=== PATIENT | female | born 1955 | race Caucasian/White ===

== ENCOUNTER → 2023-09-18 10:44 | Outpatient (REF) | payer MEDICARE, OTHER, SELFPAY ==
[2023-09-18 11:47] LABS: % Immature Granulocytes 0.2 % (0-0.5); % Lymphocytes 30.9 % (20.5-51.1); % Monocytes 6.8 % (1.7-9.3); % Neutrophils 57.1 % (42.2-75.2); Absolute Basophils 0.1 10^3/uL (0-0.2); Absolute Eosinophils 0.2 10^3/uL (0-0.7); Absolute Lymphocytes 1.6 10^3/uL (1.2-3.4); Absolute Monocytes 0.3 10^3/uL (0.1-0.6); Absolute Neutrophils 2.9 10^3/uL (1.4-6.5); Hematocrit 41.1 % (37.0-47.0); Hemoglobin 14.1 g/dL (12.0-16.0); Mean Corp Hgb Conc. 34.3 g/dL (33.0-37.0); Mean Corpuscular Hgb 33.3 pg (27.0-31.0); Mean Corpuscular Volume 96.9 fL (81.0-99.0); Mean Platelet Volume 9.8 fL (7.4-10.4); Nucleated Red Blood Cells % 0 %; Platelet Count 262 10^3/uL (130-400); Red Blood Cell Count 4.24 10^6/uL (4.20-5.40); Red Cell Dist. Width 12.7 % (11.5-14.5)
[2023-09-18 12:15] LABS: ALT (SGPT) 21 U/L (0-35); AST (SGOT) 33 U/L (14-36); Albumin 4.1 g/dl (3.5-5.0); Alkaline Phosphatase 109 U/L (38-126); Blood Urea Nitrogen 17 mg/dl (7-17); Calcium 9.4 mg/dl (8.4-10.2); Carbon Dioxide 27 mmol/L (22-30); Chloride 103 mmol/L (98-107); Glucose 93 mg/dl (70-99); HDL Cholesterol 73 mg/dl; LDL Cholesterol, Calculated 74 mg/dl; Potassium 4.9 mmol/L (3.5-5.1); Sodium 136 mmol/L (135-145); Total Bilirubin 0.4 mg/dl (0.2-1.3); Total Cholesterol 172 mg/dl (50-199); Triglyceride 129 mg/dl (10-149); Very Low Density Lipoprotein 25 mg/dl (0-30); eGFR > 60.00
[2023-09-18 12:40] LABS: TSH Reflex To Free T4 0.23 uIU/ml (0.47-4.68)
[2023-09-18 13:10] LABS: Free T4 1.21 ng/dl (0.78-2.19)
== END ==
LOC: REG 10:44
PROVIDERS: ATTENDING PHYSICIAN Internal Medicine; FAMILY PHYSICIAN Family Medicine
DX: I10 Essential (primary) hypertension (principal); E78.00 Pure hypercholesterolemia, unspecified
CPT/HCPCS: 36415; 80053; 80061; 84439; 84443; 85025

== ENCOUNTER → 2023-09-21 15:09 | Outpatient (REF) | payer MEDICARE, OTHER, SELFPAY | LOC: RAD 15:09 | PROVIDERS: ATTENDING PHYSICIAN Family Medicine | DX: S09.93XA Unspecified injury of face, initial encounter (principal) | CPT/HCPCS: 70150 ==

== ENCOUNTER → 2023-12-08 11:53 | Outpatient (REF) | payer MEDICARE, OTHER, SELFPAY ==
[2023-12-08 13:32] LABS: Free T4 0.92 ng/dl (0.78-2.19)
[2023-12-08 13:46] LABS: TSH 0.36 uIU/ml (0.47-4.68)
[2023-12-10 10:36] LABS: Thyroglobulin Antibodies <0.9 IU/mL (0.0-4.0); Thyroid Peroxidase Ab (TPO) 1.4 IU/mL (0.0-9.0)
[2023-12-10 15:35] LABS: Total T3 (Sendout) 103 ng/dL (80-200)
== END ==
LOC: REG 11:53
PROVIDERS: ATTENDING PHYSICIAN Family Medicine; OTHER PHYSICIAN Internal Medicine Endocrinology, Diabetes & Metabolism
DX: E05.90 Thyrotoxicosis, unspecified without thyrotoxic crisis or storm (principal)
CPT/HCPCS: 36415; 84439; 84443; 84480; 86376; 86800

== ENCOUNTER → 2023-12-29 14:57 | Outpatient (REF) | payer MEDICARE, OTHER, SELFPAY | LOC: RCS 14:57 | PROVIDERS: ATTENDING PHYSICIAN Family Medicine | DX: R01.1 Cardiac murmur, unspecified (principal) | CPT/HCPCS: 93306 ==

== ENCOUNTER → 2024-01-12 13:52 | Outpatient (REF) | payer MEDICARE, OTHER, SELFPAY ==
[2024-01-12 15:31] LABS: ALT (SGPT) 29 U/L (0-35); AST (SGOT) 42 U/L (14-36); Albumin 4.4 g/dl (3.5-5.0); Alkaline Phosphatase 111 U/L (38-126); Blood Urea Nitrogen 18 mg/dl (7-17); Calcium 9.9 mg/dl (8.4-10.2); Carbon Dioxide 30 mmol/L (22-30); Chloride 101 mmol/L (98-107); Glucose 101 mg/dl (70-99); Potassium 4.3 mmol/L (3.5-5.1); Sodium 139 mmol/L (135-145); Total Bilirubin 0.4 mg/dl (0.2-1.3); Total Protein 7.4 g/dl (6.3-8.2); eGFR > 60.00
[2024-01-12 15:48] LABS: Free T3 2.57 pg/ml (2.77-5.27); Free T4 0.85 ng/dl (0.78-2.19)
[2024-01-14 22:53] LABS: TSH Receptor Antibody <1.10 IU/L (<=1.75)
[2024-01-14 23:44] LABS: Thyroid Stim. Immunoglobulin <0.10 IU/L (<=0.54)
== END ==
LOC: REG 13:52
PROVIDERS: ATTENDING PHYSICIAN Internal Medicine Endocrinology, Diabetes & Metabolism
DX: E05.90 Thyrotoxicosis, unspecified without thyrotoxic crisis or storm (principal)
CPT/HCPCS: 36415; 80053; 83520; 84439; 84443; 84445; 84481

== ENCOUNTER → 2024-04-04 13:16 | Outpatient (REF) | payer MEDICARE, OTHER, SELFPAY ==
[2024-04-04 15:46] LABS: ALT (SGPT) 21 U/L (0-35); AST (SGOT) 34 U/L (14-36); Albumin 4.3 g/dl (3.5-5.0); Alkaline Phosphatase 101 U/L (38-126); Blood Urea Nitrogen 21 mg/dl (7-17); Calcium 9.6 mg/dl (8.4-10.2); Carbon Dioxide 28 mmol/L (22-30); Chloride 100 mmol/L (98-107); Glucose 81 mg/dl (70-99); Potassium 4.5 mmol/L (3.5-5.1); Sodium 139 mmol/L (135-145); Total Bilirubin 0.3 mg/dl (0.2-1.3); Total Protein 6.8 g/dl (6.3-8.2); eGFR > 60.00
[2024-04-04 16:02] LABS: Free T3 2.82 pg/ml (2.77-5.27); Free T4 0.94 ng/dl (0.78-2.19)
[2024-04-04 16:15] LABS: TSH 0.11 uIU/ml (0.47-4.68)
[2024-04-07 00:05] LABS: Thyroid Stim. Immunoglobulin <0.10 IU/L (<=0.54)
[2024-04-07 02:55] LABS: TSH Receptor Antibody <1.10 IU/L (<=1.75)
== END ==
LOC: REG 13:16
PROVIDERS: ATTENDING PHYSICIAN Internal Medicine Endocrinology, Diabetes & Metabolism; FAMILY PHYSICIAN Family Medicine
DX: E05.90 Thyrotoxicosis, unspecified without thyrotoxic crisis or storm (principal)
CPT/HCPCS: 36415; 80053; 83520; 84439; 84443; 84445; 84481

== ENCOUNTER → 2024-05-07 14:59 | Outpatient (REF) | payer MEDICARE, OTHER, SELFPAY | LOC: RAD 14:59 | PROVIDERS: ATTENDING PHYSICIAN Family Medicine | DX: E05.90 Thyrotoxicosis, unspecified without thyrotoxic crisis or storm (principal); M79.645 Pain in left finger(s) | CPT/HCPCS: 73140 ==

== ENCOUNTER → 2024-06-11 15:48 | Outpatient (REF) | payer MEDICARE, OTHER, SELFPAY | LOC: RAD 15:48 | PROVIDERS: ATTENDING PHYSICIAN Registered Nurse | DX: R10.2 Pelvic and perineal pain (principal); M53.3 Sacrococcygeal disorders, not elsewhere classified | CPT/HCPCS: 72110; 72220; 73522 ==

== ENCOUNTER → 2024-11-15 14:32 | Outpatient (REF) | payer MEDICARE, OTHER, SELFPAY ==
[2024-11-15 16:19] LABS: % Basophils 0.7 % (0-2); % Eosinophils 2.2 % (0-6); % Immature Granulocytes 0.2 % (0-0.5); % Lymphocytes 29.8 % (20.5-51.1); % Monocytes 6.3 % (1.7-9.3); % Neutrophils 60.8 % (42.2-75.2); Absolute Eosinophils 0.1 10^3/uL (0-0.7); Absolute Lymphocytes 1.7 10^3/uL (1.2-3.4); Absolute Monocytes 0.4 10^3/uL (0.1-0.6); Absolute Neutrophils 3.4 10^3/uL (1.4-6.5); Hematocrit 37.8 % (37.0-47.0); Mean Corp Hgb Conc. 34.4 g/dL (33.0-37.0); Mean Corpuscular Hgb 32.7 pg (27.0-31.0); Mean Corpuscular Volume 95.2 fL (81.0-99.0); Mean Platelet Volume 9.3 fL (7.4-10.4); Nucleated Red Blood Cells % 0 %; Platelet Count 283 10^3/uL (130-400); Red Blood Cell Count 3.97 10^6/uL (4.20-5.40); Red Cell Dist. Width 12.4 % (11.5-14.5); White Blood Cell Count 5.6 10^3/uL (4.8-10.8)
[2024-11-15 16:44] LABS: ALT (SGPT) 17 U/L (0-35); AST (SGOT) 23 U/L (14-36); Albumin 4.6 g/dl (3.5-5.0); Alkaline Phosphatase 95 U/L (38-126); Blood Urea Nitrogen 24 mg/dl (7-17); Calcium 9.4 mg/dl (8.4-10.2); Carbon Dioxide 25 mmol/L (22-30); Chloride 103 mmol/L (98-107); Glucose 83 mg/dl (70-99); HDL Cholesterol 62 mg/dl; LDL Cholesterol, Calculated 103 mg/dl; Potassium 4.8 mmol/L (3.5-5.1); Sodium 138 mmol/L (135-145); Total Bilirubin 0.4 mg/dl (0.2-1.3); Total Cholesterol 194 mg/dl (50-199); Total Protein 7.1 g/dl (6.3-8.2); Triglyceride 145 mg/dl (10-149); Very Low Density Lipoprotein 29 mg/dl (0-30); eGFR > 60.00
[2024-11-15 17:09] LABS: Free T4 0.96 ng/dl (0.78-2.19)
[2024-11-15 17:22] LABS: TSH 0.41 uIU/ml (0.47-4.68)
== END ==
LOC: REG 14:32
PROVIDERS: ATTENDING PHYSICIAN Family Medicine; OTHER PHYSICIAN Internal Medicine Endocrinology, Diabetes & Metabolism
DX: E05.90 Thyrotoxicosis, unspecified without thyrotoxic crisis or storm (principal); I10 Essential (primary) hypertension; E78.00 Pure hypercholesterolemia, unspecified; F33.2 Major depressive disorder, recurrent severe without psychotic features; F41.1 Generalized anxiety disorder; K21.9 Gastro-esophageal reflux disease without esophagitis
CPT/HCPCS: 36415; 80053; 80061; 84439; 84443; 84480; 85025

== ENCOUNTER → 2024-12-17 14:08 | Outpatient (REF) | payer MEDICARE, OTHER, SELFPAY | LOC: WDC 14:08 | PROVIDERS: ATTENDING PHYSICIAN Family Medicine | DX: Z78.0 Asymptomatic menopausal state (principal); Z12.31 Encounter for screening mammogram for malignant neoplasm of breast | CPT/HCPCS: 77063; 77067; 77080 ==

== ENCOUNTER → 2024-12-24 16:36 | Outpatient (REF) | payer MEDICARE, OTHER, SELFPAY | LOC: RAD 16:36 | PROVIDERS: ATTENDING PHYSICIAN Family Medicine | DX: M25.551 Pain in right hip (principal) | CPT/HCPCS: 73502 ==

== ENCOUNTER → 2025-01-03 12:41 | Outpatient (REF) | payer MEDICARE, OTHER, SELFPAY ==
[2025-01-03 13:21] LABS: % Basophils 0.3 % (0-2); % Eosinophils 1.1 % (0-6); % Immature Granulocytes 0.3 % (0-0.5); % Lymphocytes 21.2 % (20.5-51.1); % Monocytes 5.1 % (1.7-9.3); Absolute Eosinophils 0.1 10^3/uL (0-0.7); Absolute Lymphocytes 1.9 10^3/uL (1.2-3.4); Absolute Monocytes 0.5 10^3/uL (0.1-0.6); Absolute Neutrophils 6.4 10^3/uL (1.4-6.5); Hematocrit 34.8 % (37.0-47.0); Hemoglobin 11.9 g/dL (12.0-16.0); Mean Corp Hgb Conc. 34.2 g/dL (33.0-37.0); Mean Corpuscular Hgb 31.9 pg (27.0-31.0); Mean Corpuscular Volume 93.3 fL (81.0-99.0); Mean Platelet Volume 9.8 fL (7.4-10.4); Nucleated Red Blood Cells % 0 %; Platelet Count 247 10^3/uL (130-400); Red Blood Cell Count 3.73 10^6/uL (4.20-5.40); Red Cell Dist. Width 12.2 % (11.5-14.5)
[2025-01-03 14:17] LABS: Blood Urea Nitrogen 19 mg/dl (7-17); Calcium 9.4 mg/dl (8.4-10.2); Carbon Dioxide 27 mmol/L (22-30); Chloride 103 mmol/L (98-107); Glucose 85 mg/dl (70-99); Potassium 3.8 mmol/L (3.5-5.1); Sodium 138 mmol/L (135-145); eGFR > 60.00
== END ==
LOC: REG 12:41
PROVIDERS: ATTENDING PHYSICIAN Orthopaedic Surgery; FAMILY PHYSICIAN Family Medicine
DX: Z01.818 Encounter for other preprocedural examination (principal)
CPT/HCPCS: 36415; 80048; 85025

== ENCOUNTER → 2025-04-01 15:43 | Outpatient (REF) | payer MEDICARE, OTHER, SELFPAY ==
[2025-04-01 17:02] LABS: Free T3 3.09 pg/ml (2.77-5.27)
[2025-04-01 17:16] LABS: TSH 0.26 uIU/ml (0.47-4.68)
== END ==
LOC: REG 15:43
PROVIDERS: ATTENDING PHYSICIAN Internal Medicine Endocrinology, Diabetes & Metabolism; FAMILY PHYSICIAN Family Medicine
DX: E05.90 Thyrotoxicosis, unspecified without thyrotoxic crisis or storm (principal)
CPT/HCPCS: 36415; 84439; 84443; 84481

== ENCOUNTER → 2025-05-15 13:07 | Outpatient (REF) | payer MEDICARE, OTHER, SELFPAY ==
[2025-05-15 14:13] LABS: ALT (SGPT) 24 U/L (0-35); AST (SGOT) 23 U/L (14-36); Albumin 4.2 g/dl (3.5-5.0); Alkaline Phosphatase 87 U/L (38-126); Blood Urea Nitrogen 11 mg/dl (7-17); Calcium 9.6 mg/dl (8.4-10.2); Carbon Dioxide 29 mmol/L (22-30); Chloride 103 mmol/L (98-107); Glucose 89 mg/dl (70-99); HDL Cholesterol 96 mg/dl; LDL Cholesterol, Calculated 56 mg/dl; Potassium 4.4 mmol/L (3.5-5.1); Sodium 137 mmol/L (135-145); Total Protein 7.0 g/dl (6.3-8.2); Very Low Density Lipoprotein 35 mg/dl (0-30); eGFR > 60.00
== END ==
LOC: REG 13:07
PROVIDERS: ATTENDING PHYSICIAN Family Medicine
DX: E78.00 Pure hypercholesterolemia, unspecified (principal)
CPT/HCPCS: 36415; 80053; 80061

== ENCOUNTER → 2025-05-29 14:31 | Outpatient (REF) | payer MEDICARE, OTHER, SELFPAY | LOC: RAD 14:31 | PROVIDERS: ATTENDING PHYSICIAN Registered Nurse | DX: M25.552 Pain in left hip (principal) | CPT/HCPCS: 73502 ==

== ENCOUNTER → 2025-06-03 15:18 | Outpatient (REF) | payer MEDICARE, OTHER, SELFPAY | LOC: RAD 15:18 | PROVIDERS: ATTENDING PHYSICIAN Family Medicine | DX: M54.50 Low back pain, unspecified (principal); M25.552 Pain in left hip; M25.562 Pain in left knee | CPT/HCPCS: 72110; 73502; 73564 ==

== ENCOUNTER 2025-06-15 19:01 | Inpatient (IN) | payer MEDICARE, OTHER, SELFPAY ==
[2025-06-15] VITALS (20 sets, daily range): BP systolic 99–161; BP diastolic 64–94; BMI 24.1; BMI 24.0
[2025-06-15] MEDS: MORPHINE SULFATE 2 MG IV (12:54)
--- NOTE | 2025-06-15 12:54 | ED.GENMED ---
History of Present Illness
<DANICA Cazares - Last Filed: 06/15/25 15:54>
General
Chief Complaint: Musculo-Skeletal Complaint
Source: patient
Exam Limitations: none
Time Seen by Provider: 06/15/25 12:23
Nursing documentation reviewed up to this point in time: agreed with
History of Present Illness
History of Present Illness:
Patient is a 70-year-old female presents to the ER for evaluation. Patient presents with family. Family, daughter at bedside reports they are concerned because patient has had frequent falls over the past several weeks patient's fall
multiple times. reports this involves alcohol. He believes she was completely intoxicated last night but she denies. She admits to last using alcohol Monday. She believes she may have fallen at 4 AM this morning she does not believe
she hit her head but complains of right hip pain. She does take also gabapentin for nerve pain trazodone for sleep and Abilify to for depression in addition to other medication. She had a subarachnoid hemorrhage in January 2023 from alcohol use as
well. She presents shaky and reports she does get shaky when she does not drink alcohol.
Past History
<DANICA Cazares - Last Filed: 06/15/25 15:54>
Past History
ED Past Medical History: Cancer (breast ca), GERD and HTN
ED Past Surgical History: Gynecological (LEEP procedure), Orthopedic (History of bilateral shoulder surgery) and Other (Lumpectomy of the breast)
Patient has exhibited threatening behavior?: No
Social History
Tobacco: Non-smoker
Alcohol: None
Personal:
Living: with family
Employment: Not employed
Family History
Family History: Other (n/c)
Phy Exam
<DANICA Cazares - Last Filed: 06/15/25 15:54>
General Physical Exam
General Presentation: no apparent distress
General age: appears stated age
General Skin: warm and dry
General Habitus: normal
General Mental: alert
General Hydration: appears well hydrated
Cardiovascular Exam
Cardiovascular Exam: regular rate/rhythm, no murmur and normal peripheral pulses
Pulmonary Exam
Pulmonary Exam: lungs clear and no respiratory distress
Neurological Exam
Neurological Exam: alert and oriented x3
Musculoskeletal Exam
Musculoskeletal Exam: full ROM and other (Pain with range of motion to right lower extremity/hip strong distal pulses no obvious deformity no obvious head injury)
Skin Exam
Skin Exam: normal color and warm/dry
Psychiatric Exam
Psychiatric Exam: normal mood/affect
Course
<DANICA Cazares - Last Filed: 06/15/25 15:54>
Orders/Labs/Results
Orders:
Orders
06/15/25 12:48
CT Head W/o Iv Contrast Urgent
Comment:
Reason For Exam: trauma mult falls
06/15/25 12:49
CT Cervical Spine W/o Iv Contr Urgent
Comment:
Reason For Exam: trauma
06/15/25 12:50
Hip, Right 2-3 Views [CR Hip - RT w/wo Pel 2-3 Vw*] Urgent
Comment:
Reason For Exam: trauma
Include a pelvis x-ray?: Yes
06/15/25 12:51
0.9% Sodium Chloride 1000 ml [Nss] 1,000 ml IV BOLUS
Morphine Sulfate 2 mg IV NOW STA
06/15/25 12:55
Alcohol Urgent
Complete Blood Count/With Diff Urgent
Comprehensive Metabolic Panel Urgent
06/15/25 15:14
Propofol [Diprivan] 20 ml .ROUTE .STK-MED
06/15/25 15:23
CR Hip - RT without Pel 1 Vw Stat
Reason For Exam: post reductino
06/15/25 15:32
Hip, Right 1 View [CR Hip - RT without Pel 1 Vw] Urgent
Comment:
Reason For Exam: post reduction
06/15/25 15:40
Hip, Right 1 View [CR Hip - RT without Pel 1 Vw] Urgent
Comment:
Reason For Exam: out in
Abnormal Lab Results
06/15/25
12:55
WBC 17.4 H 10^3/uL
(4.8-10.8)
RBC 3.96 L 10^6/uL
(4.20-5.40)
MCH 32.3 H pg
(27.0-31.0)
RDW 15.0 H %
(11.5-14.5)
Abs Immat Gran (auto) 0.1 H 10^3/uL
(0-0.05)
Absolute Neuts (auto) 14.8 H 10^3/uL
(1.4-6.5)
Absolute Monos (auto) 0.8 H 10^3/uL
(0.1-0.6)
Neutrophils % 85.2 H %
(42.2-75.2)
Lymphocytes % 9.8 L %
(20.5-51.1)
Sodium 132 L mmol/L
(135-145)
BUN 27 H mg/dl
(7-17)
Glucose 148 H mg/dl
(70-99)
Alkaline Phosphatase 141 H U/L
(38-126)
06/15/25 12:55
06/15/25 12:55
Vital Signs
Initial and Last Documented VS:
Initial Vital Signs
Temp Pulse Resp BP Pulse Ox
98.1 F 90 18 143/85 97
06/15/25 12:15 06/15/25 12:15 06/15/25 12:15 06/15/25 12:15 06/15/25 12:15
Last Documented Vital Signs
Temp Pulse Resp BP Pulse Ox
98.1 F 90 18 143/85 97
06/15/25 12:15 06/15/25 12:15 06/15/25 12:15 06/15/25 12:15 06/15/25 12:56
Concrete Pile Driver Operator consulted with Physician
Concrete Pile Driver Operator consulted with physician?: Yes
Name of Physician Consulted: khadra
<Orlando Pimentel, DO - Last Filed: 06/15/25 15:41>
Orders/Labs/Results
Orders:
Orders
06/15/25 12:48
CT Head W/o Iv Contrast Urgent
Comment:
Reason For Exam: trauma mult falls
06/15/25 12:49
CT Cervical Spine W/o Iv Contr Urgent
Comment:
Reason For Exam: trauma
06/15/25 12:50
Hip, Right 2-3 Views [CR Hip - RT w/wo Pel 2-3 Vw*] Urgent
Comment:
Reason For Exam: trauma
Include a pelvis x-ray?: Yes
06/15/25 12:51
0.9% Sodium Chloride 1000 ml [Nss] 1,000 ml IV BOLUS
Morphine Sulfate 2 mg IV NOW STA
06/15/25 12:55
Alcohol Urgent
Complete Blood Count/With Diff Urgent
Comprehensive Metabolic Panel Urgent
06/15/25 15:14
Propofol [Diprivan] 20 ml .ROUTE .STK-MED
06/15/25 15:23
CR Hip - RT without Pel 1 Vw Stat
Reason For Exam: post reductino
06/15/25 15:32
Hip, Right 1 View [CR Hip - RT without Pel 1 Vw] Urgent
Comment:
Reason For Exam: post reduction
06/15/25 15:40
Hip, Right 1 View [CR Hip - RT without Pel 1 Vw] Urgent
Comment:
Reason For Exam: out in
Abnormal Lab Results
06/15/25
12:55
WBC 17.4 H 10^3/uL
(4.8-10.8)
RBC 3.96 L 10^6/uL
(4.20-5.40)
MCH 32.3 H pg
(27.0-31.0)
RDW 15.0 H %
(11.5-14.5)
Abs Immat Gran (auto) 0.1 H 10^3/uL
(0-0.05)
Absolute Neuts (auto) 14.8 H 10^3/uL
(1.4-6.5)
Absolute Monos (auto) 0.8 H 10^3/uL
(0.1-0.6)
Neutrophils % 85.2 H %
(42.2-75.2)
Lymphocytes % 9.8 L %
(20.5-51.1)
Sodium 132 L mmol/L
(135-145)
BUN 27 H mg/dl
(7-17)
Glucose 148 H mg/dl
(70-99)
Alkaline Phosphatase 141 H U/L
(38-126)
06/15/25 12:55
06/15/25 12:55
Vital Signs
Initial and Last Documented VS:
Initial Vital Signs
Temp Pulse Resp BP Pulse Ox
98.1 F 90 18 143/85 97
06/15/25 12:15 06/15/25 12:15 06/15/25 12:15 06/15/25 12:15 06/15/25 12:15
Last Documented Vital Signs
Temp Pulse Resp BP Pulse Ox
98.1 F 90 18 143/85 97
06/15/25 12:15 06/15/25 12:15 06/15/25 12:15 06/15/25 12:15 06/15/25 12:56
Procedures
<DANICA Cazares - Last Filed: 06/15/25 15:54>
Moderate Sedation
ASA Risk Score: Class II
Chart and allergies reviewed: Yes
Consent for anesthesia obtained: Yes
Time out completed (validating right patient & procedure): Yes
Moderate Sedation Start Time(when first medication is given): 15:19
History of difficult intubation: No
Airway free of obstruction: No
Patient has a gag reflex: Yes
Patient is able to open mouth: Yes
Patient has no dentures: No
Patient has no loose teeth: Yes
Medication administered by Provider during Moderate Sedation: IV Propofol (mg)
Total dose administered: 200
Time drug administered: 15:20
Moderate Sedation Procedure End Time: 15:50
<DANICA Cazares - Last Filed: 06/15/25 15:54>
MDM/Problems Addressed
Differential Diagnosis Includes:
Not limited to head injury, hip fracture versus location
MDM/Problems Addressed:
As documented patient is a 70-year-old female presents with right hip pain after fall. She believes she fell 4 AM. Patient's family concerned has multiple falls however does have a history of alcohol abuse. CAT scan of the head was therefore done
CT head and neck unremarkable. Right hip does show an obvious dislocation of the right hip prosthesis. This original surgery was done in December by Dr. Borges .
Patient was given fluids here in the ER alcohol level 0. Patient continues to deny alcohol use last night she reports last alcohol use was Monday. She does not want help with alcohol. Moderate sedation done multiple attempts were done here in
the ER however unsuccessful. Case discussed orthopedics Dr. Fairbanks who will take patient to the OR.
<DANICA Cazares - Last Filed: 06/15/25 15:54>
*Radiology
Radiology exam reviewed: radiology read reviewed
*Pulse Oximetry
SaO2: 97
Oxygen Mode of Delivery: Room air
<Orlando Pimentel DO - Last Filed: 06/15/25 15:41>
*Radiology
Radiology exam reviewed: radiology read reviewed
*Pulse Oximetry
Patient hypoxic: no
*Scrap Sorter Interpretation
Rate: normal
Interpretation: normal
Heart Rate: 78
Rhythm: sinus
*Critical Care Note
Total Time (30-74mins, 75-104mins- exclusive of procedures): Not Applicable
<DANICA Cazares - Last Filed: 06/15/25 15:54>
Patient Management
Discussion with other providers: Architect Manager (ortho dr Fairbanks )
ED Attending Note
<DANICA Cazares - Last Filed: 06/15/25 15:54>
-
Portions of this chart may have been created with voice recognition software.� Occasional wrong word or��sound alike� substitutions may have occurred due to the inherent limitations of voice recognition software.
<Orlando Pimentel DO - Last Filed: 06/15/25 15:41>
ED Attending Note
Patient seen and examined by attending physician: Yes
I performed the substantive portion of visit, reviewed & personally made and approve the management plan that is documented in note by myself or BRITT.: Yes
ED Attending Note:
Seen with COLORED LIQUID PLASTIC APPLIER examined independently slip and fall right hip dislocation history of alcoholism labs are noted x-rays noted
4 attempts at reduction unsuccessful despite multiple doses of propofol
Discharge Plan
Departure
Patient Disposition: OR
Date of Disposition: 06/15/25
Time of Disposition: 15:50
Admit to: OR
Admit to doctor: [email or web address]
Presentation/result/management discussed w/ accepting MD/DO: raymundo
Patient with high blood pressure during this ER visit?: Yes
Condition: Fair
Covid-19: Not Applicable
Discharge Problem:
right hip prosthesis dislocatoin
Prescriptions:
No Action
venlafaxine 75 MG capsule,extended release 24hr
150 mg PO BID
pantoprazole 40 MG tablet,delayed release (DR/EC)
40 mg PO HS
furosemide 20 MG tablet
20 mg PO PRN PRN (Reason: fluid)
nifedipine 60 MG tablet extended release
60 mg PO HS
aripiprazole 10 MG tablet
10 mg PO HS
lorazepam 0.5 MG tablet
0.5 mg PO PRN PRN (Reason: anxiety)
Trazadone
100 mg PO DAILY
rosuvastatin 5 MG tablet
5 mg PO DAILY
polyethylene glycol 3350 17 GRAMS powder in packet
17 grams PO DAILY Qty: 10 0RF
ketorolac 10 MG tablet
10 mg PO Q6HPRN PRN (Reason: prn for pain) Qty: 20 0RF
hydrocodone-acetaminophen [Vicodin] 1 EACH tablet
1 ea PO Q4HPRN PRN (Reason: pain) Qty: 20 0RF
ondansetron [Zofran ODT] 8 MG tablet,disintegrating
8 mg PO TIDPRN PRN (Reason: vomiting) Qty: 15 0RF
hydromorphone 2 MG tablet
2 - 4 mg PO Q6HPRN PRN (Reason: pain) Qty: 15 0RF
Referrals:
Ashli Bocanegra MD [Family Provider, Family Practice]
Interventions
Interventions:
*Risk Screen - Suicide Last Done: 06/15/25 12:15
*General Assessment Last Done: 06/15/25 12:15
*Neglect/Abuse Screening Last Done: 06/15/25 12:15
ED-Musculoskeletal Assessment Last Done: 06/15/25 12:39
Discharge Date and Time
Print Language: MAORI
[2025-06-15] MEDS: NSS 1000 IV ×2 (12:55→20:04)
[2025-06-15 13:08] LABS: Hematocrit 37.0 % (37.0-47.0); Hemoglobin 12.8 g/dL (12.0-16.0); Mean Corp Hgb Conc. 34.6 g/dL (33.0-37.0); Mean Corpuscular Volume 93.4 fL (81.0-99.0); Nucleated Red Blood Cells % 0 %; Platelet Count 293 10^3/uL (130-400); Red Cell Dist. Width 15.0 % (11.5-14.5)
[2025-06-15 13:26] LABS: ALT (SGPT) 21 U/L (0-35); AST (SGOT) 34 U/L (14-36); Albumin 3.9 g/dl (3.5-5.0); Alkaline Phosphatase 141 U/L (38-126); Blood Urea Nitrogen 27 mg/dl (7-17); Calcium 9.2 mg/dl (8.4-10.2); Carbon Dioxide 27 mmol/L (22-30); Chloride 102 mmol/L (98-107); Estimated Creatinine Clearance 53 ml/min; Glucose 148 mg/dl (70-99); Potassium 4.7 mmol/L (3.5-5.1); Sodium 132 mmol/L (135-145); Total Protein 6.7 g/dl (6.3-8.2); eGFR > 60.00
--- NOTE | 2025-06-15 17:52 | HPS.HSE ---
Family Physician
-
Family Physician: Ashli Bocanegra MD
Chief Complaint
-
falls with right hip pain
History of Present Illness
70 year old female from home by [facility] [place], [place] for frequent falls over the past 4 weeks with possible fall at 4 am per family to Or. spoke with Dr corona who states she was drinkiing alcohol last night however ETOH currently neg and pt reports Last drink
was wed. She had a dislocated Right hip in the ER that was unsucessful Attempt at Reduction in the OR , whcih is likley due to old dislocation not last night .
She was seen in the PACU post surgery is drowsy but able to give history. She denies fever chills, cp, palpitations, cough , sob, abd pain , nuasea, vomiting or diarrhea. Distal pedal pulse +2 intact warm and dry. She has past medical hitory of
HTN, etoh abuse
Gerd, Subarachnoid/Subdural hematooma january 2023 transferred to [place], depression, anxiety , insomnia, mitral gloria regurg
Medical History
Past Medical History
Past Medical History: Reports Other
Additional Past Medical History:
HTN
etoh abuse
Gerd
Subarachnoid/Subdural hematooma january 2023 transferred to [place]
depression
anxiety
insomnia
Mitral valve regurg
Past Surgical History: Reports Other
Additional Past Surgical History:
right hip replecaement
Social History
Tobacco: Non-smoker
Alcohol: Occasional (pt states 3-4 oz voka with seltzer twice month , reports daily )
Personal:
Living: With Family ( )
Family History
Family History: Unable to Obtain
Allergies / Home Medications
Allergies reflects when Allergies were last updated in [facility].
Home Medications with original date entered in [facility]
Allergy/Medication List:
Allergies
Allergy/AdvReac Type Severity Reaction Status Date / Time
environmental Allergy post nasal Uncoded 02/04/23 21:04
drip
Home Medications
aripiprazole 10 mg tablet 10 mg PO HS 05/06/09
nifedipine 60 mg tablet,extended release 60 mg PO HS 05/06/09
pantoprazole 40 mg tablet,delayed release 40 mg PO HS 05/06/09
Trazadone 150 mg PO HS 08/17/09
rosuvastatin 5 mg tablet 5 mg PO DAILY 11/30/13
gabapentin 300 mg capsule 300 mg PO HS 06/15/25
venlafaxine 150 mg capsule,extended release 24 hr 150 mg PO DAILY 06/15/25
Review of Systems
-
History Source: Patient and Physician (luz corona)
A 12 point ROS was completed and negative except as noted: Yes
Constitutional: Denies Fever or Chills
EENT: Denies Sore Throat or Runny Nose
Respiratory: Denies Cough or Trouble Breathing
Cardiac: Denies Chest Pain, Diaphoresis or Palpitations
Abdomen/GI: Denies Abdominal Pain, Nausea, Vomiting, Diarrhea or Constipated
: Denies Dysuria or Incontinence
Musculoskeletal: Reports Joint Pain (right hip ); Denies Edema
Skin: Denies Itching or Rash
Neurological: Denies Dizzy or Headache
Endocrine: Reports No Symptoms
Hematologic/Lymphatic: Reports No Symptoms
Psych: Reports Calm
Physical Exam
Vital Signs
Vital Signs
Temp Pulse Resp BP Pulse Ox
98.1 F 84 17 99/67 93
06/15/25 12:15 06/15/25 16:15 06/15/25 16:15 06/15/25 16:15 06/15/25 16:15
Physical Exam
General: No Pain, Fever or Chills
HEENT: NormoCephalic, Anicteric, Moist mucous membranes, Atraumatic, PERRLA, [place] Conjunctivae and No Ptosis
Respiratory: Clear; No Wheezes, Rales or Rhonchi
Cardiac: S1/S2, Regular Rhythm and Murmur (2/6 systolic ); No Rub, Gallop or Peripheral Edema
GI: Soft, Non Tender, Non Distended, Normal Bowel Sounds and No Hepatosplenomegaly
Rectal: Deferred by Provider
Genito-urinary: Deferred by me
Musculoskeletal: No Clubbing, No Cyanosis, No Edema and Other (on xray dilsocated right hip prosthesis, distal nvs intact skin pink warm +2 pedal pulse )
Skin: Warm and Dry; No Rash or Jaundice
Neuro: No Sensory Deficits and Other (drowsy post iv sedation); No Slurred Speech, Facial Droop or Tremors
Psych: Calm
Laboratory Results
-
06/15/25 12:55
06/15/25 12:55
Laboratory Results
Total Bilirubin 0.3 mg/dl (0.2-1.3) 06/15/25 12:55
AST 34 U/L (14-36) 06/15/25 12:55
ALT 21 U/L (0-35) 06/15/25 12:55
Alkaline Phosphatase 141 U/L (38-126) H 06/15/25 12:55
Data Reviewed
-
Diagnostic Radiology: Report Reviewed by me
Lab Data: Labs Reviewed by me
Impression/Plan
-
Impression/plan:
Admit toTELE
Right hip arthroplasty dislocation status post attempted reduction in OR unsuccessful
- Patient was taken to the OR for reduction by Dr. Dr CORONA suspects hip out longer then today
- Pain control
-IV Zofran
- Bedrest
-Iv NSS
Hypotension status post anesthesia/HTN�benign
BP 99/67
IV Normosol started in ER prior IV NSS 1 L bolus in ER
cont nifedipine 60 mg hs with hold parameters
#Alcohol abuse
-Alcohol nondetected
Report last drink was on Monday 5 days ago however reported to Orhto she drank last night states drinks Vodka with seltzer 3-4 oz twice month, states was prior etoh daily until 2022 but inconsistent with reprot
MSA screening protocol
check ekg QTC
#Subarachnoid hemorrhage/subdural hematoma 02/04/2023
- Patient was transferred to [facility]
#GERD
cont protonix
#Depression
cont abilify, Effexor
#Chronic bvack pain with neuropathy
cont gabapentin 100 mg hs
#Breast CA s/p lumpectomy
Dvt proph
scd's
Full code
--- NOTE | 2025-06-15 19:25 | PTCARENOTE ---
Pt arrived to 2S from PACU via stretcher @[id number]. AAOx3. Vital signs stable. Pt has no c/o pain. MSAS score of 3. Pt oriented to room and bed controls. Call marinelli within reach. Care ongoing.
[2025-06-15 20:24] LABS: APTT 23.7 Sec (23.4-35.0); INR 1.03; PT 13.8 Sec (11.4-14.6)
[2025-06-15 20:35] LABS: GGTP 102 U/L (12-43); Magnesium 2.4 mg/dl (1.6-2.3)
[2025-06-15 21:15] LABS: Urine Character Clear (Clear)
[2025-06-15] MEDS: PROCARDIA XL (EXTENDED RELEASE) 60 MG PO (21:50)
[2025-06-15] MEDS: NEURONTIN 300 MG PO (21:50)
[2025-06-15] MEDS: DESYREL 150 MG PO (21:50)
[2025-06-15] MEDS: ABILIFY 10 MG PO (21:50)
[2025-06-15] MEDS: PROTONIX 40 MG PO (21:52)
[2025-06-15] MEDS: THIAMINE INJECTION 200 MG IV (23:48)
[2025-06-16] VITALS (12 sets, daily range): BP systolic 129–168; BP diastolic 66–83
[2025-06-16] MEDS: DILAUDID 0.5 MG IV ×3 (05:56→16:37)
[2025-06-16] MEDS: NSS 1000 IV (06:10)
[2025-06-16 06:57] LABS: Hematocrit 36.4 % (37.0-47.0); Hemoglobin 11.8 g/dL (12.0-16.0); Mean Corp Hgb Conc. 32.4 g/dL (33.0-37.0); Mean Corpuscular Volume 98.4 fL (81.0-99.0); Nucleated Red Blood Cells % 0 %; Platelet Count 263 10^3/uL (130-400); Red Cell Dist. Width 15.0 % (11.5-14.5)
--- NOTE | 2025-06-16 06:57 | W.PN.UPDATE ---
Update Note
Progress Note Update
Patient underwent unsuccessful attempt at RIGHT hip reduction in OR via Dr. Fairbanks. Plan for RIGHT revision POLLO via Dr. Borges this afternoon. OR aware. Surgical and blood consents have been signed by the patient and placed to her chart. Operative
site has been marked as the RIGHT hip. Bedrest for now. Pain control. ETOH withdrawal protocol. Will follow
[2025-06-16 07:16] LABS: ALT (SGPT) 21 U/L (0-35); AST (SGOT) 44 U/L (14-36); Albumin 3.6 g/dl (3.5-5.0); Alkaline Phosphatase 140 U/L (38-126); Blood Urea Nitrogen 17 mg/dl (7-17); Calcium 8.7 mg/dl (8.4-10.2); Carbon Dioxide 28 mmol/L (22-30); Chloride 106 mmol/L (98-107); Estimated Creatinine Clearance 62 ml/min; Glucose 126 mg/dl (70-99); Potassium 4.3 mmol/L (3.5-5.1); Sodium 137 mmol/L (135-145); Total Protein 6.3 g/dl (6.3-8.2); eGFR > 60.00
[2025-06-16] MEDS: EFFEXOR XR 150 MG PO (08:29)
[2025-06-16] MEDS: THIAMINE INJECTION 200 MG IV ×2 (08:29→17:27)
[2025-06-16] MEDS: CRESTOR 5 MG PO (08:29)
[2025-06-16] MEDS: FOLVITE 1 MG PO (08:29)
--- NOTE | 2025-06-16 09:53 | CM ---
CM following re: discharge planning.
Reviewed pt's chart, met with pt.
Pt is a 70 year old female, admitted with SDC status and primary dx of Right hip arthroplasty dislocation status post attempted reduction in OR unsuccessful. Pt stated she is aware she is to OR today again.
Pt reports she lives with 2SH, 1 step to enter, has supportive daughter. Pt reports she ambulates with a walker and was going to outpatient therapy.
PT and OT will evaluate the pt to determine a level of care at discharge.
AD information provided.
Pt expressed her desire to return back home with resumptions of outpatient therapy or home PT/OT.
PCP: Ashli Bocanegra MD
Ph[facility]acy: [facility]
D/C plan: home with resumptions of outpatient therapy vs home PT/OT. Awaiting for PT/OT evaluations and recommendations.
CM will follow with discharge plan updates as hospitalization progresses
--- NOTE | 2025-06-16 13:51 | W.PN.HOSP.TC ---
Today's Communication/Plan
-
Assessment / Plan
Assessment / Plan
General: No Apparent Distress, Comfortable and Conversant
HEENT: NormoCephalic, Moist mucous membranes, Atraumatic
Respiratory: Clear and Non Labored Respirations
Cardiac: S1/S2 and Regular Rhythm; No Rub or Gallop
GI: Soft, Non Tender, Non Distended and Normal Bowel Sounds
Musculoskeletal: No Edema, right lateral hip marked for surgery
Skin: Warm and dry
: NO Mayo
Neuro: Awake, Alert, Nonfocal/grossly intact
Psych: Calm and cooperative
Ms. Celis is a 70-year-old female with a medical history of right hip replacement December 2024 who has had multiple frequent falls and presented with dislocated right hip prosthesis. Attempt at hip reduction in OR was unsuccessful. Admitted for right
POLLO revision.
Dislocated right hip prosthesis:
- N.p.o. for OR today with Ortho for POLLO of right hip
- Bedrest
- Pain control as needed
Hypertension:
- Nifedipine 60 mg at night with holding parameters for hypotension
Depression:
- Continue venlafaxine 150 mg p.o. daily, aripiprazole 10 mg p.o. at night
Alcohol use:
- Difficult to quantify intake, but inconsistent stories between patient and
- Monitor for signs and symptoms of withdrawal
- Continue thiamine and folate
DVT prophylaxis: SCDs
CODE STATUS: Full code
Anticipated Discharge: 24 - 48 hours
Subjective/Interval History
-
Date of Service: June 16, 2025
Patient was seen and examined at bedside this morning. Right hip pain currently well-controlled. N.p.o. for OR today with Ortho.
Objective Data
-
Labs:
Laboratory Results
06/16/25
06:39
WBC 11.4 H
Hgb 11.8 L
Hct 36.4 L
Plt Count 263
Sodium 137
Potassium 4.3
Chloride 106
Carbon Dioxide 28
BUN 17
Creatinine 0.5 L
Glucose 126 H
Calcium 8.7
Total Bilirubin 0.3
AST 44 H
ALT 21
Alkaline Phosphatase 140 H
Vital Signs:
Vital Signs
Temp Pulse Resp BP Pulse Ox
97.8 F 70 16 144/79 98
06/16/25 11:17 06/16/25 11:17 06/16/25 11:17 06/16/25 11:17 06/16/25 11:17
I&O
06/15/25 06/16/25 06/17/25
06:59 06:59 06:59
Intake Total 1200 / 1200
Output Total 1050 / 1050
Balance 150 / 150
Review of Systems
-
History Source: Patient
All other systems: Reviewed and negative
Physical Exam
-
General: No Apparent Distress
--- NOTE | 2025-06-16 16:15 | W.PN.UPDATE ---
Update Note
Progress Note Update
I spoke w. her to review the results of the surgery. he said it was very important we realized that she is a florid degenerate alcoholic (in his words) he says she lies constantly to hide her drinking and falls 10x a week. It's getting
worse, he said. She also has 'bottles of pills' that she takes on her own accord according to no specific instructions. I suggested that perhaps she could be convinced to seek help but he said it's been a problem worsening for 40 years and has
destroyed the family. He could not estimate the quantitiy of her drinking because she does it surrepticiously but it's clear she would be at extremely high risk for withdrawl here at . He said we should be prepared for her to lie abou the
magnitude of the problem and on monday, for example, the day she dislocated her hip she was 'absolutely shit faced drunk' which he video taped and showed her the next day and she told him she wasn't drunk at all. So clearly major
social/substance problems here. Hopefully social work here at can get her to admit the need for help.
[2025-06-16] MEDS: ROXICODONE 5 MG PO ×2 (16:51→20:13)
[2025-06-16] MEDS: ASPIRIN 325 MG PO (17:27)
--- NOTE | 2025-06-16 18:17 | PTCARENOTE ---
1730 Pt arrived from PACU. VSS. IVF infusing. Neurovascular checks with in normal limits. Primaseal dressing C/D/I
[2025-06-16] MEDS: ANCEF 5 IV (18:28)
[2025-06-16] MEDS: BACTROBAN 2% OINTMENT 1 APPLIC NASAL (20:08)
[2025-06-16] MEDS: COLACE 100 MG PO (20:09)
[2025-06-16] MEDS: SENOKOT 17.2 MG PO (20:09)
[2025-06-16] MEDS: PROCARDIA XL (EXTENDED RELEASE) 60 MG PO (22:24)
[2025-06-16] MEDS: DESYREL 150 MG PO (22:25)
[2025-06-16] MEDS: ABILIFY 10 MG PO (22:25)
[2025-06-16] MEDS: PROTONIX 40 MG PO (22:27)
[2025-06-16] MEDS: NEURONTIN 300 MG PO (22:27)
[2025-06-16] MEDS: TYLENOL 650 MG PO (22:28)
[2025-06-17] MEDS: ROXICODONE 10 MG PO (00:32)
[2025-06-17] MEDS: ANCEF 5 IV (00:32)
[2025-06-17] MEDS: THIAMINE INJECTION 200 MG IV ×2 (00:34→08:39)
[2025-06-17 03:04] VITALS: BP 163/87
--- NOTE | 2025-06-17 05:36 | W.PN.ORTHO ---
Today's Communication / Plan
-
70F POD 1 revision [address] PO[address]O [address]. Borges for instability
-WBAT
-Posterior hip precautions
-Hx of reported ETOH abuse- CIWAS per primary if indicated- monitoring at this time and appears stable without
-Pain regimen in place
-DVT PPX of ASA unless recommended otherwise per primary
-DC planning
Ortho surg will continue to follow
Assessment
.
Distal Motor Intact: Yes
Dressing:
Clean, dry and intact.
Plan
.
Surgery / Date: R revision POLLO 06/16 w/ Dr. Borges
DVT Prophylaxis: Aspirin
Activity:
Out of bed.
PT/OT
Subjective
.
.:
Patient resting comfortably.
Vital Signs and Labs
.
Vital Signs and Labs:
Temp Pulse Resp BP Pulse Ox
97.5 F 65 16 163/87 94
06/17/25 03:04 06/17/25 03:04 06/17/25 03:04 06/17/25 03:04 06/17/25 03:04
PT 13.8 Sec (11.4-14.6) 06/15/25 20:08
INR 1.03 06/15/25 20:08
Non-invasive Hgb result: 11.5
[2025-06-17 06:35] LABS: Hematocrit 31.1 % (37.0-47.0); Hemoglobin 10.1 g/dL (12.0-16.0); Mean Corp Hgb Conc. 32.5 g/dL (33.0-37.0); Mean Corpuscular Volume 98.4 fL (81.0-99.0); Nucleated Red Blood Cells % 0 %; Platelet Count 230 10^3/uL (130-400); Red Cell Dist. Width 14.8 % (11.5-14.5)
[2025-06-17 06:58] LABS: Blood Urea Nitrogen 16 mg/dl (7-17); Estimated Creatinine Clearance 62 ml/min; Glucose 120 mg/dl (70-99)
[2025-06-17 06:59] LABS: ALT (SGPT) 19 U/L (0-35); AST (SGOT) 44 U/L (14-36); Albumin 3.2 g/dl (3.5-5.0); Alkaline Phosphatase 128 U/L (38-126); Calcium 8.6 mg/dl (8.4-10.2); Carbon Dioxide 29 mmol/L (22-30); Chloride 104 mmol/L (98-107); Potassium 4.7 mmol/L (3.5-5.1); Sodium 132 mmol/L (135-145); Total Protein 5.6 g/dl (6.3-8.2); eGFR > 60.00
[2025-06-17 07:05] VITALS: BP 113/62
[2025-06-17] MEDS: NSS IV (07:25)
[2025-06-17] MEDS: EFFEXOR XR 150 MG PO (08:38)
[2025-06-17] MEDS: ASPIRIN 325 MG PO (08:38)
[2025-06-17] MEDS: CRESTOR 5 MG PO (08:38)
[2025-06-17] MEDS: SENOKOT 17.2 MG PO (08:38)
[2025-06-17] MEDS: FOLVITE 1 MG PO (08:38)
[2025-06-17] MEDS: COLACE 100 MG PO (08:38)
[2025-06-17] MEDS: BACTROBAN 2% OINTMENT 1 APPLIC NASAL (08:40)
[2025-06-17 10:44] VITALS: BP 149/78; BP 156/79; PULSE 90
[2025-06-17 10:48] VITALS: BP 156/79; PULSE 90
[2025-06-17 11:05] VITALS: BP 129/78
--- NOTE | 2025-06-17 14:07 | CM ---
CM following re: discharge planning.
Reviewed pt's chart, met with pt.
PT and OT evaluations noted - outpatient therapy recommended. Pt is aware and she stated she preferred [facility] services first and after she will resume outpatient therapy. Pt preferred [facility]. A referral to [facility] made.
Pt admitted to history of alcohol abuse. In the beginning of conversation, pt stated she has a couple of drinks per months and as conversation progresses pt stated: 'I want to be honest with you, i am drinking daily and I will stop doing it because
my hates it'. Emotional support and encouragement to stop drinking offered and provided. Pt declined meeting with [facility] team stated she will stop drinking on her own.
Discharge order noted. Pt is aware, expressed her agreement with discharge and she stated her is coming to transport home. IMM reviewed, placed on chart, pt has a copy.
Please fax discharge instructions to [facility] [phone]
D/C plan: home with [facility] and family support. to transport
[2025-06-17 15:00] VITALS: BP 164/85
--- NOTE | 2025-06-17 15:43 | VNURNOTE ---
Home Health Liaison met with patient at bedside to discuss [facility] therapy, visits, schedule and homebound status. Patient is agreeable and understands that visits at home will be 2-3 x per week to assess and teach medical management. Patient is
aware that [facility] will contact them for start of care within a week after discharge from . Provided contact number for [facility].
[facility] referral completed in [facility].
--- NOTE | 2025-06-18 16:05 | W.DCSUMMARY ---
Discharge Summary
Discharge Data
Date of Admission: 06/15/25
Date of Discharge: 06/17/25
Total time spent discharging patient (in min): 50
-
Pending Results: No
Hospital Course
Ms. Celis is a 70-year-old female with a medical history of alcohol abuse, hypertension, and recent right hip replacement December 2024 who has had multiple frequent falls and presented with dislocated right hip prosthesis. Attempt at hip reduction in
OR was unsuccessful. Admitted for right POLLO revision. It is believed that she dislocated her hip during multiple falls while intoxicated. She was evasive when discussing her alcohol use and did not show any signs or symptoms of withdrawal during
this hospitalization.
She underwent successful revision of total right hip arthroplasty on acetabular and femoral sides, with both sides converted to dual mobility on 06/16/2025. She tolerated the procedure well. She was discharged to home with outpatient orthopedic
follow-up.
General: No Apparent Distress, Comfortable and Conversant
HEENT: NormoCephalic, Moist mucous membranes, Atraumatic
Respiratory: Clear and Non Labored Respirations
Cardiac: S1/S2 and Regular Rhythm; No Rub or Gallop
GI: Soft, Non Tender, Non Distended and Normal Bowel Sounds
Musculoskeletal: No Edema, right lateral hip surgical dressings with minimal strikethrough
Skin: Warm and dry
: NO Mayo
Neuro: Awake, Alert, Nonfocal/grossly intact
Psych: Calm and cooperative
Discharge Plan
-
Patient Disposition: Home with Home Care
Discharge Diagnosis/Procedures: Dislocated right hip prosthesis requiring surgical revision
Activity Restrictions/Additional Instructions:
You were admitted for management of your dislocated right hip prosthesis after multiple falls at home. Your falls are believed to be due to chronic alcohol abuse. You were brought to the OR on 06/16/2025 for surgical revision and tolerated the
procedure well. You were evaluated by physical and Occupational Therapy postoperatively who recommended outpatient therapy after hospital discharge. The orthopedic surgeon recommended using full-strength aspirin daily for 1 month postoperatively
to avoid blood clots. You will need to follow-up in the outpatient orthopedic office in 1 to 2 months. You will be given prescriptions for thiamine and folate supplementation to be taken daily to help with your nutritional status in the setting of
chronic alcohol intake. You should also abstain from any further alcohol use. You demonstrated no signs or symptoms of alcohol withdrawal during this admission.
Referrals:
Boogie Fairbanks MD [Active, Orthopedics]
Ashli Bocanegra MD [Family Provider, Family Practice]
Prescriptions:
New
aspirin 325 mg Tablet
325 mg PO DAILY 30 Days Qty: 30 0RF
docusate sodium 100 mg Capsule
100 mg PO BID 5 Days Qty: 10 0RF
sennosides [Kate-debbie] 8.6 mg Tablet
17.2 mg PO BID 5 Days Qty: 20 0RF
folic acid 1 mg Tablet
1 mg PO DAILY 30 Days Qty: 30 0RF
thiamine mononitrate (vit B1) 100 mg Tablet
100 mg PO BID 30 Days Qty: 60 0RF
(DME) physical therapy
See Rx Instructions .Route .MEDSUPPLY Qty: 1 0RF
Rx Instructions:
As directed
Continued
pantoprazole 40 MG tablet,delayed release (DR/EC)
40 mg PO HS
nifedipine 60 MG tablet extended release
60 mg PO HS
aripiprazole [Abilify] 10 MG tablet
10 mg PO HS
Trazadone
150 mg PO HS
rosuvastatin 5 MG tablet
5 mg PO DAILY
venlafaxine 150 mg capsule,extended release 24hr
150 mg PO DAILY
gabapentin 300 mg capsule
300 mg PO HS
Discharge Orders:
Discharge Patient (As Directed); Ordered 06/17/25
Ordered By: Dagoberto Louis
Discharge Date and Time
Discharge Date/Time: 06/17/25 16:05
Print Language: GREEK
== END 2025-06-17 16:05 | disposition home health service (06) | DRG 467 ==
LOC: 2 SOUTH 19:01
PROVIDERS: Clinical Nurse Specialist Family Health; Nurse Practitioner; Orthopaedic Surgery; ADMITTING PHYSICIAN Internal Medicine; ATTENDING PHYSICIAN Internal Medicine; CONSULT PHYSICIAN Specialist; EMERGENCY PHYSICIAN Emergency Medicine; FAMILY PHYSICIAN Family Medicine
PROC: 0SW9XJZ Revision of Synthetic Substitute in Right Hip Joint, External Approach (ICD-10-PCS; 2025-06-15)
PROC: 0SP90JZ Removal of Synthetic Substitute from Right Hip Joint, Open Approach (ICD-10-PCS; 2025-06-16)
PROC: 0SR901A Replacement of Right Hip Joint with Metal Synthetic Substitute, Uncemented, Open Approach (ICD-10-PCS; 2025-06-16)
DX: T84.020A Dislocation of internal right hip prosthesis, initial encounter (principal); E87.1 Hypo-osmolality and hyponatremia; F10.239 Alcohol dependence with withdrawal, unspecified; Y79.2 Prosthetic and other implants, materials and accessory orthopedic devices associated with adverse incidents; I10 Essential (primary) hypertension; F32.A Depression, unspecified; Z85.3 Personal history of malignant neoplasm of breast; Z91.81 History of falling
CPT/HCPCS: 27265; 70450; 72125; 73501; 73502; 76000; 80053; 80306; 80307; 81003; 82010; 82077; 82977; 83735; 84100; 85025; 85610; 85730; 86850; 86900; 86901; 93005; 96361; 96374; 97116; 97163; 97167; 99152; 99285; C1776

== ENCOUNTER → 2025-07-14 09:21 | Outpatient (REF) | payer MEDICARE, OTHER, SELFPAY ==
[2025-07-14 10:36] LABS: Hematocrit 36.9 % (37.0-47.0); Hemoglobin 12.0 g/dL (12.0-16.0); Mean Corp Hgb Conc. 32.5 g/dL (33.0-37.0); Mean Corpuscular Volume 99.5 fL (81.0-99.0); Nucleated Red Blood Cells % 0 %; Platelet Count 303 10^3/uL (130-400); Red Cell Dist. Width 13.7 % (11.5-14.5)
[2025-07-14 11:02] LABS: ALT (SGPT) 14 U/L (0-35); AST (SGOT) 21 U/L (14-36); Albumin 4.2 g/dl (3.5-5.0); Alkaline Phosphatase 131 U/L (38-126); Blood Urea Nitrogen 18 mg/dl (7-17); Calcium 9.6 mg/dl (8.4-10.2); Carbon Dioxide 26 mmol/L (22-30); Chloride 102 mmol/L (98-107); Glucose 89 mg/dl (70-99); Magnesium 1.9 mg/dl (1.6-2.3); Potassium 3.9 mmol/L (3.5-5.1); Sodium 136 mmol/L (135-145); Total Protein 7.2 g/dl (6.3-8.2); eGFR > 60.00
[2025-07-17 02:43] LABS: Vitamin B1, Whole Blood 394 nmol/L (70-180)
== END ==
LOC: REG 09:21
PROVIDERS: ATTENDING PHYSICIAN Family Medicine
DX: M25.551 Pain in right hip (principal); E87.1 Hypo-osmolality and hyponatremia; E83.42 Hypomagnesemia; F10.10 Alcohol abuse, uncomplicated
CPT/HCPCS: 36415; 80053; 83735; 84100; 84425; 84443; 85025